=== PATIENT | male | born 1950 | race Caucasian/White ===

== ENCOUNTER → 2017-05-23 | Outpatient (CLI) | payer BC ==
--- NOTE | 2017-05-23 12:25 | DIAGNOSTIC IMAGING REPORT ---
R ELBOW MIN 3 VIEWS ROUTINE, R HUMERUS MIN 2 VIEWS ROUTINE, R SHOULDER MIN 2 VIEWS ROUTINE HISTORY: 66 years-old Male FALL acute right upper extremity pain status post fall COMPARISON: Right shoulder radiographs 03/17/2015 TECHNIQUE: 3 views of the right shoulder, 2 views of the right humerus and 3 views of the right elbow FINDINGS: SHOULDER: Moderate glenohumeral and AC joint degenerative changes. There is no acute fracture or dislocation. The right clavicle appears to be intact. Mildly decreased acromiohumeral interval with humeral head spurring suggests subacromial impingement. HUMERUS: No acute fracture or dislocation. No opaque foreign body. ELBOW: There is mild marginal spurring about the elbow without acute fracture or dislocation. No large joint effusion or opaque foreign body. No intra-articular loose body identified. Radial head appears intact. IMPRESSION: 1. No acute fracture or dislocation. 2. 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 The above report was generated using voice recognition software. It may contain grammatical, syntax or spelling errors. Electronically signed by: Kenneth Oliveros M.D. 05/23/2017 12:23 PM Dictated Date/Time: 05/23/2017 12:21 PM
== END | disposition home or self-care (01) ==
LOC: C.RAD1850 11:55
PROVIDERS: ATTEND Student in an Organized Health Care Education/Training Program
DX: T14.8XXA Other injury of unspecified body region, initial encounter (principal); W19.XXXA Unspecified fall, initial encounter; M19.011 Primary osteoarthritis, right shoulder